=== PATIENT | female | born 1990 | race Caucasian/White ===

== ENCOUNTER 2021-04-16 09:04 | Emergency (ER) | payer OTHER ==
[~2021-04-16] VITALS: Ht 172.7 cm; Wt 63.5 kg
[~2021-04-16 09:04] MED LIST: BACTRIM DS TAB1 EACH PO; LEVAQUIN750 MG PO; NORCO 5-325 TA1 EACH PO; PENICILLIN V P500 MG PO; TUMS200 MG PO; [UNRECOGNIZED DRUG - REMARK] PO
[2021-04-16] MEDS ORDERED: EPINEPHRIN0.3 MG/0.3 IM (09:44)
[2021-04-16] MEDS ORDERED: VENTOLIN HFA18 GM INH (09:44)
[2021-04-16] MEDS ORDERED: HYDROCODON-ACE1 EA10 PO (12:49)
== END 2021-04-16 13:04 | disposition home or self-care (01) ==
LOC: ED 09:04
DX: N83.201 Unspecified ovarian cyst, right side (principal); N28.1 Cyst of kidney, acquired; Z87.891 Personal history of nicotine dependence; Z88.8 Allergy status to other drugs, medicaments and biological substances; Z91.030 Bee allergy status; Z91.040 Latex allergy status; Z79.899 Other long term (current) drug therapy
CPT/HCPCS: 74177; 80053; 81001; 83690; 84703; 85025; 96375; 99284-25; J1170; J2405; Q9967

== ENCOUNTER 2022-03-12 07:06 | Emergency (ER) | payer OTHER ==
[~2022-03-12] VITALS: Ht 172.7 cm; Wt 79.4 kg
[~2022-03-12 07:06] MED LIST changes: +EPINEPHRIN0.3 MG/0.3 IM; +HYDROCODON-ACE1 EA10 PO; +VENTOLIN HFA18 GM INH
== END 2022-03-12 09:50 | disposition home or self-care (01) ==
LOC: ED 07:06
DX: K59.00 Constipation, unspecified (principal); Z87.891 Personal history of nicotine dependence; Z88.8 Allergy status to other drugs, medicaments and biological substances; Z91.040 Latex allergy status; Z91.030 Bee allergy status; Z79.899 Other long term (current) drug therapy
CPT/HCPCS: 36415; 74177; 80053; 81001; 83690; 84703; 85025; 96375; 99284-25; J1200; J1885; J2765; J7030; Q9967